=== PATIENT | female | born 1930 | race Caucasian/White ===

== ENCOUNTER 2018-02-02 10:53 | Emergency (ER) | payer MEDICARE ==
[2018-02-02] MEDS ORDERED: Aspirin 81 mg CHEW TAB* 81 MG TAB.CHEW PO ONE (11:03)
[2018-02-02] MEDS ORDERED: Acetaminophen TAB* 325 MG PO ONE (11:04)
[2018-02-02 11:12] VITALS: BP 154/98
--- NOTE | 2018-02-02 11:12 | UC ---
Cardiac HPI - HPI Summary HPI Summary: This pt is an 87 y/o female, accompanied by her daughter, presenting to [facility] c/ o sudden onset of chest pain today. Pt is hard of hearing and pt's daughter is giving the history. Daughter reports the pt woke up this morning at 04:00 feeling chest pain described as heaviness and someone sitting on her chest. Additionally her pain is described as "gas pain" under left breast radiating into her back. Daughter states pt also has SOB, breathing harder than usual, and nausea. Denies vomiting. 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 Daughter notes pt passed some gas relieving some of her pain. Pt noted to have fever of 101.4F currently at urgent care. PMHx includes heart murmur, HTN, back surgery. Per daughter, pt has no hx of LBBB. Pt has seen her cut out worker and had an echo done about 1 month ago, per daughter. Her PCP is Dr. Rosas. - History of Current Complaint Stated Complaint: CHEST PAIN Time Seen by Provider: 02/02/18 10:57 Hx Obtained From: Patient, Family/Batch Trucker - Daughter Onset/Duration: Sudden Onset, Still Present Timing: Constant Initial Severity: Severe Current Severity: Mild Chest Pain Location: Left Anterior - radiating into back Character: Heaviness Aggravating Factor(s): Nothing Alleviating Factor(s): Other - passsing gas Associated Signs & Symptoms: Positive: Chest Pain, SOB, Fever, Nausea/Vomiting - Nausea - Allergy/Home Medications Allergies/Adverse Reactions: Allergies Allergy/AdvReac Type Severity Reaction Status Date / Time Penicillins Allergy Rash Verified 02/02/18 10:59 Sulfa (Sulfonamide Allergy Rash Verified 02/02/18 10:59 Antibiotics) PMH/Surg Hx/FS Hx/Imm Hx - Additional Past Medical History Additional PMH: PMHx: osteoporosis. Other Endocrine History: DENIES: diabetes Cardiovascular History: Hypertension Other Cardiovascular History: heart murmur - Surgical History Surgical History: None - Family History Known Family History: Negative: Cardiac Disease, Diabetes Family History: No FHx of CA. - Social History Alcohol Use: None Substance Use Type: None Smoking Status (MU): Never Smoked Tobacco Have You Smoked in the Last Year: No - Immunization History Vaccination Up to Date: Yes Review of Systems Constitutional: Fever Skin: Negative Eyes: Negative ENT: Negative Respiratory: Shortness Of Breath Cardiovascular: Chest Pain Gastrointestinal: Nausea Genitourinary: Negative Motor: Negative Neurovascular: Negative Musculoskeletal: Negative Neurological: Negative Psychological: Negative All Other Systems Reviewed And Are Negative: Yes Physical Exam - Summary Physical Exam Summary: VITAL SIGNS: Reviewed. GENERAL: Patient is a well-developed and nourished female who is lying comfortable in the stretcher. Patient is not in any acute respiratory distress. HEAD AND FACE: Normocephalic EYES: PERRLA, EOMI x 2. EARS: Hearing grossly intact. MOUTH: Oropharynx within normal limits. NECK: Supple, trachea is midline, no adenopathy, no JVD, no carotid bruit. CHEST: Symmetric, no tenderness at palpation LUNGS: Clear to auscultation bilaterally. No wheezing or crackles. CVS: Regular rate and rhythm, S1 and S2 present, no murmurs or gallops appreciated. ABDOMEN: Soft, non-tender. Bowel sounds are normal. No abdominal abnormal pulsations. EXTREMITIES: Full ROM in all major joints, no edema, no cyanosis or clubbing. NEURO: Alert and oriented x 3. No acute neurological deficits. Speech is normal and follows commands. SKIN: Dry and warm Triage Information Reviewed: Yes Vital Signs: Initial Vitals Temp Pulse Resp BP Pulse Ox 101.4 F 91 24 154/98 94 02/02/18 11:02 02/02/18 11:02 02/02/18 11:02 02/02/18 11:02 02/02/18 11:02 Vital Signs Reviewed: Yes Diagnostics - EKG Cardiac Rate: NL Cardiac Rhythm: Sinus: Normal - EKG at 10:55 shows NSR at 95 bpm. Left bundle branch block. EKG Comparison: Other - no old EKG for comparison. - Assessment/Plan Course Of Treatment: Pt is an 87 y/o female who presents with sudden onset of chest pain today. Pt is hard of hearing and pt's daughter is giving the history. Daughter reports the pt woke up this morning at 04:00 feeling chest pain described as heaviness and someone sitting on her chest. Additionally her pain is described as "gas pain" under left breast radiating into her back. Daughter states pt also has SOB, breathing harder than usual, and nausea. Denies vomiting. Pt noted to have fever of 101.4F. EKG shows normal sinus rhythm at 95 bpm, with LBBB and no ST elevations. There are no prior EKGs for comparison. In the course pt was placed on 2L of [place] oxygen, was given aspirin and tylenol. Pt is recommended to go to the emergency department for further work up and management, and pt and daughter agree. Pt declines ambulance and daughter will be driving the pt to the ED. I spoke with Dr. Chandler , ED provider, who is aware of pt going to the ED via private vehicle. The patient was found to have increased blood pressure in . The patient will follow up with PCP for better control of BP. - Clinical Impression Provider Diagnoses: Chest pain. Fever - Physician Notifications Discussed Patient Care With: Mei Chandler Time Discussed With Above Provider: 11:12 Instructed by Provider To: Other - I spoke with Dr. Chandler, ED provider, who is aware of pt going to the ED via private vehicle. Discharge - Sign-Out/Discharge Documenting (check all that apply): Patient Departure - Discharge to the ED - Discharge Plan Condition: Stable Disposition: HOME-RECOMMEND TO ED Patient Education Materials: Chest Pain (DC), Fever in Adults (ED) Referrals: Ubadlo Rosas MD [Primary Care Provider] - Additional Instructions: Patient will be discharged to the emergency department for further workup and management. The patient declined ambulance transport. Patient's daughter will be driving the patient to the emergency department. - Billing Disposition and Condition Condition: STABLE Disposition: Home-Recommend to ED
== END 2018-02-02 11:17 | disposition home health service (06) ==
LOC: UCEAST 10:53
DX: R07.89 Other chest pain (principal); I44.7 Left bundle-branch block, unspecified; R50.9 Fever, unspecified; R06.02 Shortness of breath; R11.2 Nausea with vomiting, unspecified; M81.0 Age-related osteoporosis without current pathological fracture; I10 Essential (primary) hypertension; R01.1 Cardiac murmur, unspecified; Z88.0 Allergy status to penicillin; Z88.2 Allergy status to sulfonamides
CPT/HCPCS: 93005; 99212; A9270-GY; G0463

== ENCOUNTER 2018-02-02 11:42 | Inpatient (IN) | payer MEDICARE ==
--- NOTE | 2018-02-02 12:04 | ED ---
HPI Chest Pain - HPI Summary HPI Summary: 87 year old F presenting to [facility] accompanied by and daughter complains of chest pain located under her left breast that radiates to her back since 04:00 today. Symptoms aggravated by nothing. Symptoms alleviated by nothing. Daughter delivers HPI as pt feels weak and is hard of hearing. She reports pt had fever at UC 101.4 and shortness of breath. Denies wheezing. States that patient's kidneys were not working well 1 year ago, but pt wouldn't go back for follow up. Hx leaky aortic valve, heart murmur. Hx osteoporosis. Had back surgery in 2016 at [place]. Usually wears back brace, except in bed. Has lost weight since the surgery. Patient received [address] [facility]. Pt was also noted with new LBBB at urgent care today. Home Medications Medication Instructions Recorded Confirmed Type Calcium Carbonate/Vitamin D3 1 each PO TID 02/02/18 02/02/18 History [Calcium 600 + Vit D Tablet] Cholecalciferol TAB* [Vitamin D 75 mcg PO DAILY 02/02/18 02/02/18 History TAB*] Docusate Sodium [Stool Softener] 100 mg PO BEDTIME 02/02/18 02/02/18 History Famotidine TAB* [Pepcid 20 MG TAB*] 10 mg PO DAILY 02/02/18 02/02/18 History Gabapentin CAP(*) [Neurontin 100 100 mg PO TID 02/02/18 02/02/18 History mg CAP(*)] Lisinopril TAB* [Prinivil TAB*] 2.5 mg PO DAILY 02/02/18 02/02/18 History Vit C/E/Zinc/Lutein/Zeaxanthin 1 chw PO DAILY 02/02/18 02/02/18 History [Ocuvite Eye Health Gummie] oxyCODONE TAB* [Roxycodone TAB 5 5 mg PO Q6H PRN 02/02/18 02/02/18 History mg*] - History of Current Complaint Chief Complaint: EDChestPainROMI Time Seen by Provider: 02/02/18 11:44 Hx Obtained From: Patient, Family/Retail Shift Manager - daughter Onset/Duration: Started Hours Ago - at 04:00 today, Still Present Time of Onset: 04:00 Timing: Constant Initial Severity: Moderate Current Severity: Moderate Pain Intensity: 4 Chest Pain Location: Left Anterior Chest Pain Radiates: Yes Chest Pain Radiates To:: Back Character: Pressure/Squeezing Aggravating Factor(s): Nothing Alleviating Factor(s): Nothing Associated Signs and Symptoms: Positive: Negative - wheezing, Shortness of Breath, Fever - Allergy/Home Medications Allergies/Adverse Reactions: Allergies Allergy/AdvReac Type Severity Reaction Status Date / Time Penicillins Allergy Rash Verified 02/02/18 10:59 Sulfa (Sulfonamide Allergy Rash Verified 02/02/18 10:59 Antibiotics) Home Medications: Home Medications Calcium Carbonate/Vitamin D3 [Calcium 600 + Vit D Tablet] 1 each PO TID [History Confirmed 02/02/18] Cholecalciferol TAB* [Vitamin D TAB*] 75 mcg PO DAILY 02/02/18 [History Confirmed 02/02/18] Docusate Sodium [Stool Softener] 100 mg PO BEDTIME 02/02/18 [History Confirmed 02/02/18] Famotidine TAB* [Pepcid 20 MG TAB*] 10 mg PO DAILY 02/02/18 [History Confirmed 02/02/18] Gabapentin CAP(*) [Neurontin 100 mg CAP(*)] 100 mg PO TID 02/02/18 [History Confirmed 02/02/18] Lisinopril TAB* [Prinivil TAB 5 MG*] 2.5 mg PO DAILY 02/02/18 [History Confirmed 02/02/18] Vit C/E/Zinc/Lutein/Zeaxanthin [Ocuvite Eye Health Gummies] 1 chw PO DAILY 02/02 [History Confirmed 02/02/18] oxyCODONE TAB* [Roxycodone TAB 5 mg*] 5 mg PO Q6H PRN 02/02/18 [History Confirmed 02/02/18] PMH/Surg Hx/FS Hx/Imm Hx Previously Healthy: No Cardiovascular History: Reports: Hx Hypertension - On meds, Hx Valvular Heart Disease, Other Cardiovascular Problems/Disorders - Hx heart murmur, leaky aortic valve Denies: Hx Myocardial Infarction Respiratory History: Denies: Hx Chronic Obstructive Pulmonary Disease (COPD) Musculoskeletal History: Reports: Hx Osteoporosis - Surgical History Surgery Procedure, Year, and Place: rods and pins in her back at [place] in 2016 Infectious Disease History: No Infectious Disease History: Reports: Hx Shingles Denies: Hx Clostridium Difficile, Hx Hepatitis, Hx Human Immunodeficiency Virus (HIV), Hx of Known/Suspected MRSA, Hx Tuberculosis, Hx Known/Suspected VRE , Hx Known/Suspected VRSA, History Other Infectious Disease, Traveled Outside the [place] in Last 30 Days - Family History Known Family History: Positive: Other - Mother had dementia and passed from pneumonia aspiration Negative: Cardiac Disease, Diabetes Family History: No FHx of CA. - Social History Alcohol Use: None Hx Substance Use: No Substance Use Type: Reports: None Hx Tobacco Use: No Smoking Status (MU): Never Smoked Tobacco Have You Smoked in the Last Year: No Review of Systems Positive: Fever Positive: Chest Pain - located under her left breast that radiates to her back Respiratory: Negative - wheezing Positive: Shortness Of Breath Gastrointestinal: Negative Skin: Negative Neurological: Negative Psychological: Normal All Other Systems Reviewed And Are Negative: Yes Physical Exam - Summary Physical Exam Summary: Appearance: Ill-appearing, no pain distress, well-nourished, hard of hearing, afebrile Skin: Warm, color reflects adequate perfusion, dry Head: Normal Head/Face inspection, atraumatic Eyes: Conjunctiva clear ENT: Normal inspection Neck: Supple, no nodes, no JVD Respiratory: Diminished breath sounds, no respiratory distress Cardio: RRR, II/ sytolic murmur at base, pulses normal, brisk capillary refill Abdomen: Soft, nontender Bowel sounds: Present Musculoskeletal: Strength Intact/ROM intact, no calf tenderness, no edema. Psychological: Normal Neuro: Alert, muscle tone normal, no focal deficit Triage Information Reviewed: Yes Vital Signs On Initial Exam: Initial Vitals Temp Pulse Resp BP Pulse Ox 97.9 F 94 20 115/97 93 02/02/18 11:48 02/02/18 11:48 02/02/18 11:48 02/02/18 11:48 02/02/18 11:48 Vital Signs Reviewed: Yes Diagnostics - Vital Signs Vital Signs Temp Pulse Resp BP Pulse Ox 02/02/18 11:48 97.9 F 94 20 115/97 93 - Laboratory Result Diagrams: 02/04/18 05:23 02/04/18 05:23 Lab Statement: Any lab studies that have been ordered have been reviewed, and results considered in the medical decision making process. - Radiology CXR Radiology Interpretation Completed By: Radiologist - NO ACTIVE CARDIOPULMONARY DISEASE IS NOTED. ED physician has reviewed this report. - EKG 1157 Cardiac Rate: NL - 89 BPM EKG Rhythm: Sinus Rhythm ST Segment: Non-Specific Ectopy: None EKG Interpretation: Nml AVCT. Prolonged IVCT. LBBB pattern. [place] (-19). No acute changes. EKG Comparison: Other - No prior to compare except from [facility] 02/02/18 Re-Evaluation - Re-Evaluation First Eval Re-Evaluation Time: 12:40 Change: Unchanged Comment: pain is improved, agrees to admission Chest Pain Course/Dx - Course Course Of Treatment: 87 yo F transferred from by private car, c/o chest pain , noted with temp 101.4 at . Sepsis pathway started on admission. Medications reviewed this visit. Allergies noted. Bloodwork/UA obtained. CXR shows NO ACTIVE CARDIOPULMONARY DISEASE. EKG shows new onset LBBB. Patient given IV fluids 30ml/kg, Levaquin, and Azactam in ED course for pulmonary source, PCN allergic. Discussed with Dr. Lang, hospitalist, who agrees to admit patient to [facility] - Chest Pain Differential Diagnosis/HQI/PQRI: ACS, CHF, Lower Respiratory Infection, Pulmonary Embolism - Diagnoses Provider Diagnoses: Chest pain, Hypoxia, Fever, New onset left bundle branch block (LBBB), Pneumonia - Provider Notifications Discussed Care Of Patient With: Pb Lang Time Discussed With Above Provider: 12:50 Instructed by Provider To: Other - Dr. Lang, hospitalist, agrees to admit patient. - Critical Care Time Critical Care Time: 30-74 min - 30 minutes for hypoxia, pneumonia Discharge - Sign-Out/Discharge Documenting (check all that apply): Patient Departure - Admit - Discharge Plan Condition: Good Disposition: ADMITTED TO [facility] - Billing Disposition and Condition Condition: GOOD Disposition: Admitted to [facility]
[2018-02-02 12:22] LABS: ABS Basophils 0.1 10^3/ul (0-0.2); ABS Eosinophils 0 10^3/ul (0-0.6); ABS Lymphocytes 1.8 10^3/ul (1.0-4.8); ABS Monocytes 0.9 10^3/ul (0-0.8); ABS Neutrophils 12.4 10^3/ul (1.5-7.7); ABS Nucleated RBC 0 10^3/ul; Eosinophil % 0.2 % (0-6); Hematocrit 37 % (35-47); Hemoglobin 12.5 g/dl (12.0-16.0); Mean Corpuscular HGB Conc 34 g/dl (31-36); Mean Corpuscular Hemoglobin 32 pg (27-31); Mean Corpuscular Volume 94 fL (80-97); Mean Platelet Volume 7.7 um3 (7.4-10.4); Nucleated Red Blood Cells % 0; Platelet Count 203 10^3/ul (150-450); Red Blood Count 3.93 10^6/ul (4.00-5.40); Red Cell Distribution Width 15 % (10.5-15); White Blood Count 15.2 10^3/ul (3.5-10.8)
--- NOTE | 2018-02-02 12:31 | RAD ---
Indication: Chest pain, fever. Single frontal view of the chest performed at 1224 hour was reviewed. No prior study is available. No mediastinal shift is noted. Heart is mildly enlarged.. Lung arce appear clear. IMPRESSION: NO ACTIVE CARDIOPULMONARY DISEASE IS NOTED.
[2018-02-02 12:32] LABS: INR 0.94 (0.77-1.02)
[2018-02-02 12:38] LABS: EGFR Non-African American 53.1 (>60)
[2018-02-02] MEDS ORDERED: Aztreonam (*) 2 GM in NS 0.9% 50 ML* 50 ML IVPB ONE (12:38)
[2018-02-02] MEDS ORDERED: Levofloxacin 750 MG IVPREMIX(* 750 MG/150 ML BAG IVPB ONE (12:38)
[2018-02-02] MEDS ORDERED: NS 0.9% 1000 ML*IV.FLUID IV ONE (12:38)
[2018-02-02] MEDS ORDERED: oxyCODONE TAB* 5 MG TAB PO PRN (13:50)
[2018-02-02] MEDS ORDERED: Ondansetron INJ* 2 MG/ML VIAL IV PRN (13:51)
[2018-02-02] MEDS ORDERED: Acetaminophen TAB* 325 MG PO PRN (13:51)
[2018-02-02] MEDS ORDERED: Al Hydrox/Mg Hydrox/Simet LIQ* 30 ML UDC PO PRN (13:53)
[2018-02-02 14:46] LABS: Urine Appearance Clear; Urine Blood 2+ (Negative); Urine Color Yellow; Urine Ketones Negative (Negative); Urine Protein Negative (Negative); Urine Red Blood Cell 2+(6-10/hpf) (Absent); Urine Urobilinogen Negative (Negative); Urine White Blood Cell Trace(0-5/hpf) (Absent)
--- NOTE | 2018-02-02 15:44 | HP ---
CC: Dr. Rosas; Dr. Ragsdale * [facility] MEDICINE HISTORY AND PHYSICAL: DATE OF ADMISSION: 02/02/18 PRIMARY CARE PHYSICIAN: Dr. Rosas. AMBULANCE DRIVER: Dr. Ragsdale. ATTENDING PHYSICIAN: Dr. Michael Lang * (dictation provided by Teresa Perez NP). CHIEF COMPLAINT: Chest pain, fever, nausea. HISTORY OF PRESENT ILLNESS: Ms. Hdz is an 87-year-old female with past medical history of moderate aortic stenosis and hypertension who presented to the hospital today after developing chest pain at home. Ms. Hdz states that she went to bed yesterday feeling fine, she awoke at 4 a.m. this morning and she had left-sided chest discomfort. She had no radiation into her arm or her neck. She had no diaphoresis or shortness of breath; however, she did report some nausea. She went back to bed and laid down. The fact that she was having chest pain ultimately percolated on to her family members who grew concerned and strongly encouraged her to come to be evaluated. They ultimately agreed that the patient would go to the walk-in clinic at [facility]. At [facility], she was noted to have a fever to 101.4. She was having mild nausea. She has had no further chest pain. She had a mild headache. While at [facility], she was given aspirin and Tylenol. With this, her headache and nausea and fever had resolved. She continues to have no chest pain. While there, they did note that she had a left bundle branch block, but no previous EKG for comparison and therefore, she was encouraged to come to the emergency room for further evaluation. The patient refused EMS and was brought here by her family. At this time, she remains chest pain-free and she is completely asymptomatic. She denies any cough. She does not feel short of breath. In the emergency room, she was 91% to 92% on room air and for that reason, they put her on 2 L nasal cannula, but she is now satting 95% on room air. She has no abdominal pain, no diarrhea. She has had no vomiting. Here in the emergency room, she had labs, which showed a mild leukocytosis with a white blood cell count of 15.2; however, ESR is 33 and her CRP is only 22.67. Her procalcitonin is less than 0.1. She did have a blood gas drawn that showed a pH of 7.49, PCO2 of 32, PO2 of 84, bicarb 26.1 indicating respiratory alkalosis. Chest x- ray showed no acute intrathoracic process. Her urinalysis is pending. EKG showed a left bundle branch block, but this is consistent with previous based on documentation from Dr. Ragsdale's office. In review of the record, Ms. Hdz was seen at Dr. Ragsdale's office in October of 2017, at which time she was documented to have a left bundle branch block. She also had a transthoracic echocardiogram, which showed moderate aortic stenosis and an EF of 40% to 45%. PAST MEDICAL HISTORY: 1. Moderate aortic stenosis with ejection fraction of 40% to 45%. 2. Osteoporosis. 3. Hypertension. 4. Gallstones. 5. Osteoarthritis. 6. Insomnia. MEDICATIONS: Outpatient are: 1. Docusate 100 mg p.o. at bedtime. 2. Oxycodone 5 mg p.o. q.6 hours p.r.n. 3. Famotidine 10 mg p.o. daily. 4. Cholecalciferol 75 mcg p.o. daily. 5. Calcium with D3 one tab p.o. t.i.d. 6. Ocuvite Eye Health Gummies 1 chewable tab p.o. daily. 7. Gabapentin 100 mg p.o. t.i.d. 8. Lisinopril 2.5 mg p.o. daily. ALLERGIES: To PENICILLINS and SULFA. FAMILY HISTORY: The patient reports both her mother and father were related to old age. SOCIAL HISTORY: No reported alcohol, tobacco, or drug use. The patient states that her daughter, Julissa, and her , Ramón, will be the healthcare proxies. REVIEW OF SYSTEMS: A 14-point review of systems was completed with Ms. Hdz and all those not mentioned above were negative. PHYSICAL EXAMINATION GENERAL: Ms. Hdz is lying in the bed. She is in no acute distress. She has no complaint. VITAL SIGNS: Temperature 97.9, pulse rate 79, respiratory rate 21, O2 saturation 98% on 2 L nasal cannula and 95% on room air, blood pressure 98/61. LUNGS: Clear to auscultation bilaterally with no accessory muscle use and good aeration. HEART: S1, S2 with a murmur at the right sternal border. The rhythm is regular. ABDOMEN: Soft, nontender with bowel sounds positive x4. EXTREMITIES: No cyanosis or edema. NEURO: She is alert. She is oriented x3. She moves all extremities equally. There is no facial asymmetry or focal weakness. Extraocular movements are intact. SKIN: Intact. DIAGNOSTIC STUDIES/LAB DATA: WBC 15.2, hemoglobin 12.5, hematocrit 37, and platelet count 203. ESR 33. INR is 0.94. Blood gas shows pH 7.49, PCO2 of 32 , PO2 of 84, bicarbonate 26.1. Sodium 136, potassium 4.1, chloride 101, serum bicarbonate 27, BUN 14, creatinine 0.99, which is improved from previous, and glucose 107. Lactic acid is 1.2. Troponin is 0.03. CRP is 22.67. BNP is 423 with no previous to comparison and procalcitonin is less than 0.1. Chest x-ray is read as follows: "No active cardiopulmonary disease is noted." EKG shows a left bundle branch block with a heart rate about 90. ASSESSMENT AND PLAN: Ms. Hdz is an 87-year-old female with past medical history of moderate aortic stenosis and ejection fraction of 40% to 45% and hypertension, who presents to the hospital with chest pain morning, it is now resolved, followed by nausea, headache and fever to 101.4. Our plans for observation in the hospital for followin. Chest pain. The patient's first troponin is negative. Her EKG is not interpretable for ischemia due to presence of left bundle branch block. This is consistent with previous based on the records from Dr. Ragsdale's office. The patient will have repeat troponins x2 and will be monitored on the telemetry unit. I will note the patient states that after she drank a carbonated beverage this morning, she burped and felt better and she suspects that this is related to gas. At this time, I would not plan for stress testing unless she had further chest pain or the troponins were elevated. In the setting of fever and potential infection, I think alternate sources of chest pain are likely. The patient recently had a transthoracic echocardiogram outpatient with Dr. Ragsdale. I see no indication for a repeat at this time. 2. Fever. The patient has no focal infection at this point. She has no cough. No infiltrate noted on the x-ray. She was initially on oxygen in the emergency room, but her O2 saturation has been running greater than 90% since arrival. We are waiting on a urinalysis, so it is possible the urinary tract infection is the culprit. The patient has been given antibiotics in the emergency room, but I do not plan to continue them as I have no focal source of infection. It could be the patient has early viral illness. Her other markers of infection are negligible including a mild leukocytosis, negative ESR, mild elevation in CRP and a negative procalcitonin. 3. Hypertension. Plan to continue lisinopril. 4. DVT prophylaxis with heparin subcu. 5. Chronic pain with osteoarthritis. Continue oxycodone p.r.n. 6. Code status is full code. I did review this with the patient, but she states that was unfamiliar with the question and would like to remain full code while she continues to think more about it with her family. 7. Disposition will be to telemetry floor. TIME SPENT: Approximately 60 minutes were spent on the admission of this patient, more than half time was spent with the patient at the bedside reviewing the events leading up to this hospitalization, performing the physical examination, and reviewing the plan of care. TERESA PEREZ NP [id number]/CPS #: [id number] ESTEFANY
[2018-02-02] MEDS: Gabapentin CAP(*) 100 MG PO SCH ×2 (16:22→21:01)
[2018-02-02] MEDS: Heparin VIAL(*) 5000 UNITS/ML VIAL (FIVE THOUSAND) SUBCUT SCH ×2 (16:23→21:01)
[2018-02-02] MEDS: Docusate CAP* 100 MG PO SCH (21:01)
[2018-02-03 05:50] LABS: ABS Basophils 0 10^3/ul (0-0.2); ABS Eosinophils 0.1 10^3/ul (0-0.6); ABS Lymphocytes 1.7 10^3/ul (1.0-4.8); ABS Monocytes 0.7 10^3/ul (0-0.8); ABS Neutrophils 8.7 10^3/ul (1.5-7.7); ABS Nucleated RBC 0 10^3/ul; Eosinophil % 0.7 % (0-6); Hematocrit 33 % (35-47); Hemoglobin 11.3 g/dl (12.0-16.0); Lymphocyte % 14.8 % (25-47); Mean Corpuscular HGB Conc 34 g/dl (31-36); Mean Corpuscular Hemoglobin 32 pg (27-31); Mean Corpuscular Volume 95 fL (80-97); Mean Platelet Volume 7.8 um3 (7.4-10.4); Nucleated Red Blood Cells % 0.1; Platelet Count 181 10^3/ul (150-450); Red Blood Count 3.51 10^6/ul (4.00-5.40); Red Cell Distribution Width 15 % (10.5-15); White Blood Count 11.3 10^3/ul (3.5-10.8)
[2018-02-03] MEDS: Heparin VIAL(*) 5000 UNITS/ML VIAL (FIVE THOUSAND) SUBCUT SCH ×3 (05:59→21:37)
[2018-02-03 06:08] LABS: EGFR Non-African American 58.5 (>60)
[2018-02-03] MEDS: Gabapentin CAP(*) 100 MG PO SCH ×3 (08:24→21:36)
[2018-02-03] MEDS: Famotidine TAB* 20 MG PO SCH (08:25)
[2018-02-03] MEDS: Lisinopril TAB* 5 MG PO SCH (08:25)
[2018-02-03] MEDS ORDERED: Iodixanol* (CONTRAST) 320 MG/ML 100 ML SDV IV ONE (11:56)
--- NOTE | 2018-02-03 13:07 | RAD ---
INDICATION: Chest pain radiating to back COMPARISON: None TECHNIQUE: Axial source images were acquired following the administration of 66 mL Visipaque [address] angiographic technique. Coronal and sagittal reconstructed images were constructed and reviewed. FINDINGS: There there are no filling defects in the pulmonary arteries to indicate acute pulmonary embolic disease. There are patchy infiltrates throughout the lung. For example in the posterior aspect of the superiormost left lower lobe (image 14). There is patchy infiltrate at with a "tree-in-bud" appearance in the lateral aspect of the right upper lobe (axial image 22). Similar density is seen in the medial aspect of the right middle lobe. The heart is normal in size. There is no evidence of pericardial effusion. There is no evidence of aortic aneurysm or dissection. There is no mediastinal, hilar, or axillary lymphadenopathy. There is a large hiatal hernia with most of the stomach displaced with the right of midline mediastinum. Degenerative changes of the thoracic spine includes loss of intervertebral disc height. There is sclerotic change of the articulating endplates at T2/T3. Transpedicular fixation screws are partially visualized at the L1 vertebral body. Limited views of the upper abdomen show no abnormalities. IMPRESSION: 1. No CT of evidence of pulmonary embolism. 2. Patchy densities are seen throughout the lung as described above. Infectious or inflammatory etiology should be considered. At the lateral aspect of the right upper lobe the densities have a "tree-in-bud" appearance which can be seen in the setting of atypical pneumonia. 3. The patient has a large hiatal hernia with most of the stomach located in the mediastinum. This raises the concern that the infiltrates in the lung could be due to aspiration pneumonia.
--- NOTE | 2018-02-03 18:05 | PN ---
Subjective Date of Service: 02/03/18 Interval History: Pt seen and examined. Meds and labs reviewed. Pt feels better and mentions she is not on O2 at home. ROS: Pt and family mentioned her chest pain was heavy in character and may have radiated to the back Denied CORBIN/dizziness, F/C, N/V, CP, SOB, increased cough, sputum production, abd pain, diarrhea, constipation, dysuria, myalgias, arthralgias, throat pain, and new skin lesions. The rest of the 14 point ROS are unremarkable. PHYSICAL EXAM: GEN APPEARANCE: Awake, not in acute distress HEENT: NC/AT, PERRLA, moist oral mucosa, (-) throat erythema NECK: Soft, supple, (-) cervical LAD, (-)JVD HEART: S1S2 WNL, RRR, No MRG CHEST: Bibasal crackles, GAE, No W/R/R ABD: Soft, ND/NT, NABS 4x Q EXT: No C/C/E SKIN: Warm to touch PSYCH: No active psychosis, hallucinations, depression, SI/HI Objective Active Medications: Acetaminophen (Tylenol Tab*) 650 mg PO Q6H PRN PRN Reason: pain/fever Al Hydrox/Mg Hydrox/Simethicone (Maalox Plus*) 30 ml PO Q4H PRN PRN Reason: INDIGESTION Docusate Sodium (Colace Cap*) 100 mg PO BEDTIME [facility] [place] Last Admin: 02/02/18 21:01 Dose: 100 mg Famotidine (Pepcid Tab*) 10 mg PO DAILY [facility] [place] Last Admin: 02/03/18 08:25 Dose: 10 mg Gabapentin (Neurontin Cap(*)) 100 mg PO TID [facility] [place] Last Admin: 02/03/18 14:43 Dose: 100 mg Heparin Sodium (Porcine) (Heparin Vial(*)) 5,000 units SUBCUT Q12HR [facility] [place] Levofloxacin/Dextrose (Levaquin 750 Mg Ivpremix(*)) 750 mg in 150 mls @ 100 mls /hr IVPB Q48HR [facility] [place] Lisinopril (Prinivil Tab*) 2.5 mg PO DAILY [facility] [place] Last Admin: 02/03/18 08:25 Dose: 2.5 mg Ondansetron HCl (Zofran Inj*) 4 mg IV Q6H PRN PRN Reason: NAUSEA Oxycodone HCl (Roxycodone Tab*) 5 mg PO Q6H PRN PRN Reason: PAIN Vital Signs - 8 hr 02/03/18 02/03/18 14:43 15:16 Temperature 98.7 F Pulse Rate 99 Respiratory 18 16 Rate Blood Pressure 152/73 (mmHg) O2 Sat by Pulse 96 Oximetry Oxygen Devices in Use Now: None Result Diagrams: 02/03/18 05:22 02/03/18 05:22 Microbiology and Other Data: Microbiology 02/02/18 14:26 Urine Culture - Final Urine No Growth (<1,000 CFU/mL) 02/02/18 12:25 Aerobic Blood Culture - Preliminary Blood Venous No Growth Day 1 Anaerobic Blood Culture - Preliminary No Growth Day 1 02/02/18 12:07 Aerobic Blood Culture - Preliminary Blood Venous No Growth Day 1 Anaerobic Blood Culture - Preliminary No Growth Day 1 Assess/Plan/Problems-Billing Assessment: - Patient Problems (1) Chest pain Current Visit: Yes Status: Acute Code(s): R07.9 - CHEST PAIN, UNSPECIFIED SNOMED Code(s): 79016743 Comment: -Resolved -CTA was ordered to evaluate for PE given possible radiation to back, CT of chest reveal atypical infiltrates consistent with atypical PNA -Continue with Levaquin q48 750 mg -Obtain Urine Ag test for Legionella and S. pneumoniae -Continue to follow cultures (2) HTN (hypertension) Current Visit: Yes Status: Acute Code(s): I10 - ESSENTIAL (PRIMARY) HYPERTENSION SNOMED Code(s): 50184116 Comment: -Continue Lisinopril (3) Osteoarthritis Current Visit: Yes Status: Acute Code(s): M19.90 - UNSPECIFIED OSTEOARTHRITIS, UNSPECIFIED SITE SNOMED Code(s): 911985196 Comment: -Continue PRN pain meds (4) DVT prophylaxis Current Visit: Yes Status: Acute Code(s): [id number] - SNOMED Code(s): 884846494 Comment: -Will decrease Heparin SQ to q12h Status and Disposition: -For possible D/C home in AM -For Ambulatory sats in AM
[2018-02-03] MEDS: Docusate CAP* 100 MG PO SCH (21:36)
[2018-02-04 05:35] LABS: ABS Basophils 0.1 10^3/ul (0-0.2); ABS Eosinophils 0.2 10^3/ul (0-0.6); ABS Lymphocytes 2.1 10^3/ul (1.0-4.8); ABS Monocytes 0.9 10^3/ul (0-0.8); ABS Neutrophils 6.7 10^3/ul (1.5-7.7); ABS Nucleated RBC 0 10^3/ul; Eosinophil % 1.7 % (0-6); Hematocrit 35 % (35-47); Hemoglobin 11.8 g/dl (12.0-16.0); Lymphocyte % 21.2 % (25-47); Mean Corpuscular HGB Conc 34 g/dl (31-36); Mean Corpuscular Hemoglobin 32 pg (27-31); Mean Corpuscular Volume 95 fL (80-97); Mean Platelet Volume 7.7 um3 (7.4-10.4); Nucleated Red Blood Cells % 0; Platelet Count 200 10^3/ul (150-450); Red Blood Count 3.69 10^6/ul (4.00-5.40); Red Cell Distribution Width 15 % (10.5-15); White Blood Count 9.9 10^3/ul (3.5-10.8)
[2018-02-04] MEDS ORDERED: Levofloxacin 750 MG IVPREMIX(* 750 MG/150 ML BAG IVPB SCH (09:00)
[2018-02-04] MEDS: Gabapentin CAP(*) 100 MG PO SCH (09:03)
[2018-02-04] MEDS: Famotidine TAB* 20 MG PO SCH (09:03)
[2018-02-04] MEDS: Lisinopril TAB* 5 MG PO SCH (09:04)
[2018-02-04] MEDS: Heparin VIAL(*) 5000 UNITS/ML VIAL (FIVE THOUSAND) SUBCUT SCH (09:04)
[2018-02-04 10:06] VITALS: BP 141/75
--- NOTE | 2018-02-04 23:15 | DS ---
CC: Dr. Pito Lang; Dr. Mei Chandler; Dr. Ubaldo Rosas.* DISCHARGE SUMMARY: DATE OF ADMISSION: 02/03/18 DATE OF DISCHARGE: 02/04/18 DISCHARGE DIAGNOSES: 1. Chest pain likely secondary to atypical pneumonia, troponin x3 is negative. ACS has been ruled out. 2. Hypertension. 3. Osteoarthritis. DISCHARGE MEDICATIONS: Are as follows: 1. Calcium carbonate 1 tab p.o. t.i.d. 2. Cholecalciferol 75 mcg p.o. daily. 3. Colace 100 mg p.o. q.h.s. 4. Famotidine 20 mg p.o. daily. 5. Gabapentin 100 mg p.o. t.i.d. 6. Floranex tablet 1 tab p.o. daily for 10 days. 7. Levaquin tab 750 p.o. q. 48 hours for 3 more dosings. 8. Lisinopril 5 mg p.o. daily. 9. Oxycodone 5 mg p.o. q. 6 p.r.n. 10. Vitamin tablets 1 tab p.o. daily. HISTORY OF PRESENT ILLNESS/HOSPITAL COURSE: The patient is an 87-year-old lady with history of moderate aortic stenosis and hypertension, who presented to the hospital today given her chest pain where she mentions she awoke at around 4 a.m. in the morning and presented with left-sided discomfort without any radiation to her arm and her neck. Although she mentioned to her daughter that she might have had some radiation of this pain to the back, but did not mention it to her admitting provider. Her initial chest x-ray was read as no acute disease and/or issues and she was subsequently ruled out by the time I saw her the following morning for ACS with troponins being negative x3. However, on my review of her history along with my physical examination, although she did not have any JVD, she did have some significant hepatojugular reflux suggesting some increased right-sided pressure, which could either be due to a secondary pulmonary hypertension that may either be due to a clot or pneumonia. CT angio was done given her subsequent history and CT angio confirms the atypical distribution of her pneumonia. She was restarted on Levaquin at 750 and given her GFR and being an elderly, this was dosed every other day. She did receive her first dose of Levaquin, which was not subsequently continued on admission given her negative chest x-ray. Her cultures were found to be negative for 2 days as well as her clinical picture appears to have improved with resolution of her chief complaint, which is her chest pain along with negative urinary antigens for legionella and streptococcus pneumoniae. She was advised to follow up and/or call her PCP within 3 days post DC and to call [facility] if her PCP cannot see her any sooner and that both her and her PCP agrees that she will need to be seen sooner. She was advised to call my office regarding any questions, concerns, or further clarifications regarding her discharge plans and/or prescriptions and she was advised to take her medications as prescribed. PHYSICAL EXAMINATION: Reveals most recent vital signs of record with blood pressure of 141/75, 98.1 degrees Fahrenheit, 89 beats per minute heart rate, 16 per minute respiratory rate, saturating at 96% room air. General Appearance: The patient is awake, alert and oriented x3, not in acute distress. HEENT: Normocephalic, atraumatic. PERRLA. Extraocular muscles intact. Negative for icterus. Moist oral mucosa. Negative throat erythema. Neck is soft, supple, with no cervical lymphadenopathy, no JVD. Heart: S1, S2, within normal limits , regular rate and rhythm. No murmurs, rubs and gallops. Chest is clear to auscultation bilaterally. Good air entry. No wheezes, rales, and rhonchi. Abdomen is soft, nondistended, nontender. Normal active bowel sounds x4. Extremities: No cyanosis, clubbing or edema. Psychiatric: No active psychosis , depression, suicidal or homicidal ideations. Skin is warm to touch. REVIEW OF SYSTEMS: On review of systems, the patient denied any recent headaches, dizziness, fevers, chills, nausea, vomiting, chest pain, shortness of breath, increased cough and/or sputum production, abdominal pain, diarrhea, constipation, pain and/or increased frequency in urination, myalgias, arthralgias, throat pain or new skin lesions. The rest of the 14-point review of systems are otherwise unremarkable. TIME SPENT: The total time spent evaluating the patient, reviewing pertinent data, and appropriate documentation is greater than 30 minutes. [id number]/[facility] #: [id number] [facility]
== END 2018-02-04 13:47 | disposition home or self-care (01) | DRG 195 ==
LOC: ED 11:42 → MEDTELE 14:06 → OBSVTOIN 02-03 16:00
PROVIDERS: ADMIT Internal Medicine; ATTEND Student in an Organized Health Care Education/Training Program
DX: J18.9 Pneumonia, unspecified organism (principal); I10 Essential (primary) hypertension; M19.90 Unspecified osteoarthritis, unspecified site; R07.9 Chest pain, unspecified; I44.7 Left bundle-branch block, unspecified; M81.0 Age-related osteoporosis without current pathological fracture; G47.00 Insomnia, unspecified; I35.0 Nonrheumatic aortic (valve) stenosis; Z79.891 Long term (current) use of opiate analgesic; Z79.899 Other long term (current) drug therapy; Z88.0 Allergy status to penicillin; Z88.2 Allergy status to sulfonamides; G89.29 Other chronic pain
CPT/HCPCS: 36415; 71045; 71275; 80048; 80053; 81003; 81015; 82550; 82803; 83605; 83735; 83880; 84100; 84145; 84484; 85025; 85610; 85652; 85730; 86140; 87040; 87086; 87899; 93005; 99212; 99284; A9270-GY; G0378; G0463; J1644; Q9967